=== PATIENT | male | born 1990 | race Two or more races ===

== ENCOUNTER 2025-10-07 05:43 | Emergency (ER) | payer BC, SELFPAY ==
[2025-10-07 05:44] VITALS: BMI 30.9
[2025-10-07 06:04] VITALS: BP 135/90; PULSE 76; RESP 19; TEMP 36.8; O2SAT 97
--- NOTE | 2025-10-07 06:17 | EDNOTE_ITS ---
ED Back Injury Pain RME/HPI General Chief Complaint: Back Pain/Injury Stated Complaint: BACK PAIN, ABD PAIN Time Seen by Provider: 10/07/25 06:20 Source: patient Arrival date/time: 10/07/25 05:43 35-year-old male with no known medical history presents to the emergency room with a chief complaint of thoracic back pain x 1 day Mode of arrival: ambulatory Limitations: no limitations Related Data Previous Rx's ?Medication ?Instructions ?Recorded ibuprofen 800 mg tablet 800 mg PO Q8H #30 tabs 10/07 Allergies Allergy/AdvReac Type Severity Reaction Status Date / Time No Known Allergies Allergy Verified 10/07/25 05:44 Review of Systems Review of Systems Systems Reviewed: All systems reviewed, normal except as documented Constitutional Constitutional: Reports system reviewed and no additional complaints, except as documented, Denies fatigue, Denies fever(s), Denies headache(s) and Denies weakness Eyes Eyes: Reports system reviewed and no additional complaints, except as documented, Denies blurry vision and Denies change in vision ENT Ears, Nose, Mouth, and Throat: Reports system reviewed and no additional complaints, except as documented, Denies otalgia, Denies headache(s), Denies nasal congestion, Denies throat swelling and Denies vertigo Cardiovascular Cardiovascular: Reports system reviewed and no additional complaints, except as documented, Denies chest pain, Denies dyspnea and Denies dyspnea on exertion Respiratory Respiratory: Reports system reviewed and no additional complaints, except as documented, Denies chest congestion, Denies cough, Denies dyspnea, Denies dyspnea on exertion and Denies wheezing Gastrointestinal Gastrointestinal: Reports system reviewed and no additional complaints, except as documented, Denies abdominal pain, Denies cramping, Denies nausea and Denies vomiting Genitourinary Genitourinary: Reports system reviewed and no additional complaints, except as documented, Denies dysuria and Denies hematuria Musculoskeletal Musculoskeletal: Reports system reviewed and no additional complaints, except as documented and Reports back pain Integumentary/Breasts Skin/Breast: Reports system reviewed and no additional complaints, except as documented and Denies wounds Neurologic Neurologic: Reports system reviewed and no additional complaints, except as documented, Denies confusion, Denies headache(s), Denies lack of coordination, Denies vertigo and Denies weakness Psychiatric Psychiatric: Reports system reviewed and no additional complaints, except as documented, Denies anxiety, Denies confusion, Denies depression, Denies paranoia, Denies suicidal ideation and Denies tactile hallucinations Endocrine Endocrine: Reports system reviewed and no additional complaints, except as documented and Denies fatigue Hematologic/Lymphatic Hematologic/Lymphatic: Reports system reviewed and no additional complaints, except as documented and Denies lymphadenopathy Allergic/Immunologic Allergic/Immunologic: Reports system reviewed and no additional complaints, except as documented, Denies throat swelling, Denies urticaria and Denies wheezing Past Medical History Social History SMOKING STATUS: Never smoker ED Exam General Limitations: Present no limitations General appearance: Present alert and in no apparent distress Head Head exam: Present atraumatic Eye Eye exam: Present normal appearance, PERRL and EOMI ENT ENT exam: Present normal exam, normal oropharynx and mucous membranes moist Neck Neck exam: Present normal inspection, full ROM and trachea midline Chest Chest inspection: Present normal inspection and symmetric chest wall rise Respiratory Respiratory exam: Present normal lung sounds bilaterally Cardiovascular Cardiovascular exam: Present regular rate, normal rhythm and normal heart sounds Abdominal Exam Abdominal exam: Present soft and normal bowel sounds Extremities Exam Extremities exam: Present normal inspection and full ROM Back Exam Back exam: Present normal inspection, full ROM, tenderness and vertebral tenderness; Absent CVA tenderness (R), CVA tenderness (L) or paraspinal tenderness Back 1 view image: 2 1. Thoracic back pain with palpation Neurological Exam Neurological exam: Present alert, oriented X3, CN II-XII intact, normal gait and reflexes normal Expanded Neurological Exam Cerebellar function: Present normal gait Spinal cord function: Absent saddle anesthesia Psychiatric Psychiatric exam: Present normal affect and normal mood Skin Skin exam: Present warm, dry, intact and normal color Course Quality Measures none Orders Category Date Time Status XR thoracic spine 3V Stat Exams 10/07/25 06:17 Completed Ketorolac Inj [Toradol Inj] Med 10/07/25 06:17 Discontinued 30 mg IM X1 ONE Vital Signs Vital signs: Vital Signs Temperature 98.2 F 10/07/25 06:04 Pulse Rate 76 10/07/25 06:04 Respiratory Rate 19 10/07/25 06:04 Blood Pressure 135/90 H 10/07/25 06:04 Pulse Oximetry (%) 97 10/07/25 06:04 Oxygen Delivery Method Aerosol Mask 10/07/25 06:04 Back Pain / Injury MDM Narrative MDM Narrative:: 35-year-old male with no known medical history presents to the emergency room with a chief complaint of thoracic back pain x 1 day Patient is hemodynamically stable and in no apparent distress Physical examination shows tenderness to the thoracic area of the patient's spine with palpation. There is no CVA tenderness there is no tenderness to the lumbar spine. The patient denies any trauma. The patient denies any loss of bowel or bladder function. The patient denies any numbness to the lower extremities. The patient is able to ambulate. X-ray of the thoracic spine was completed and was negative for any acute findings. Patient was discharged and educated to follow-up with primary care provider in the next 24 to 48 hours and return to the emergency room for any evidence of worsening signs or symptoms Patient data External records reviewed:: [facility] previous records Clinical information provided by:: patient Social determinants that could affect healthcare access:: none Patient has the following chronic illnesses:: No chronic illness How is presenting disease/condition affected by chronic disease/condition?: no chronic disease Evaluation data The following diagnostics were reviewed and interpreted by me:: lab results and radiology exam(s) Lab and/or radiology exams considered but not ordered:: Labs and radiology exams considered and ordered Interpretation Summary: Thoracic spine x-ray- Medications / Prescriptions Medications or Prescriptions considered but not ordered:: Medication given Medication administrations:: Medication Administration History Discontinued Medications Ketorolac Tromethamine (Ketorolac Inj 60 Mg/2 Ml Vial) 30 mg IM X1 ONE Stop: 10/07/25 06:18 Last Admin: 10/07/25 06:23 Dose: Not Given Documented By: CL Non-Admin Reason: Patient Refused Medication given Consultations Consultation(s) initiated? (list below): No Diagnosis Differential diagnosis back pain/injury: renal colic, thoracic back pain and discitis Most likely diagnosis given after review of the tests above:: Thoracic back pain Admission Indicated Admission indicated?: not indicated Admission Request Was there a request for admission?: No Disposition Plan Disposition Plan: Discharge Discharge Attestation Discharge Attestation: The patient and all family members were given an opportunity to ask questions and understood the discharge instructions. Discharge instructions specifically effects, indications for sooner follow up or return to the emergency department, and the expected course of current diagnosis. Patient condition: Stable Discharge Plan Plan Patient Disposition: HOME (Self Care) Discharge Disposition comment: Stable Prescriptions/Referrals Prescriptions/Med Rec: New ibuprofen 800 mg tablet 800 mg PO Q8H Qty: 30 0RF Referrals: Wero Welch [Primary Care Provider] - In 1 week Problem List Clinical Impression: Thoracic back pain Patient/Caregiver Discharge Instructions Education Materials: ED Back Pain (Acute or Chronic) Additional Instructions: Please follow-up with your primary care provider in the next 24 to 48 hours X-rays of your thoracic spine were negative for any acute fractures or dislocations For any evidence of worsening signs or symptoms return to emergency room immediately Print Language: Gabonese Stand Alone Forms: [employer] Info., Work/School Release, Patient Portal Info Letter PA/MEMBER SERVICE REPRESENTATIVE Supervising Physician PA/MEMBER SERVICE REPRESENTATIVE Supervising Physician: Dr. Joe
--- NOTE | 2025-10-07 06:17 | XR_ITS ---
EXAMINATION: Thoracic spine 3 views TECHNIQUE: AP lateral: Lateral upper dorsal spine 3 views INDICATIONS: Back pain today. FINDINGS: The AP film is mislabeled Thoracic levoscoliosis 6 degrees No thoracic fracture Minimal thoracic disc narrowing Intact pedicles No fracture IMPRESSION: Minimal thoracic disc narrowing
== END 2025-10-07 07:39 | disposition home or self-care (01) ==
PROVIDERS: Emergency Provider Emergency Medicine; PCP Internal Medicine
DX: M54.6 Pain in thoracic spine (principal)
CPT/HCPCS: 72072; 99282